=== PATIENT | female | born 1950 | race Caucasian/White ===

== ENCOUNTER 2020-11-04 15:06 | Emergency (ER) | payer MEDICARE, OTHER, SELFPAY ==
[2020-11-04 15:26] VITALS: BP 136/79; PULSE 93; RESP 24; TEMP 36.5; O2SAT 94; BMI 30.2
[2020-11-04 18:40] VITALS: BP 136/80; PULSE 68; RESP 18; TEMP 37.5; O2SAT 100
[2020-11-04 19:11] LABS: COVID19 -Nasal RAPID POSITIVE (Negative)
--- NOTE | 2020-11-04 19:34 | DI.RAD.S_ITS ---
\PROCEDURE: XR CHEST 1V INDICATIONS: covid TECHNIQUE: One view of the chest was acquired. COMPARISON: None. FINDINGS: Surgical changes and devices: None. Lungs and pleura: Bilateral patchy interstitial and airspace opacities, right greater than left. No pleural effusion or pneumothorax. Mediastinum: Mediastinal contours appear normal. Heart size is normal. Bones and chest wall: No suspicious bony lesions. Overlying soft tissues appear unremarkable. IMPRESSION: Bilateral interstitial and airspace opacities consistent with pneumonia. Dictated by: Caesar Reeves M.D. on 11/04/2020 at 19:57 Approved by: Caesar Reeves M.D. on 11/04/2020 at 19:58
--- NOTE | 2020-11-04 19:53 | ED_ITS ---
HPI - URI/Sore Throat General Chief Complaint: Upper Respiratory Symptoms Stated Complaint: Symptoms of COVID, Pulse Ox Keeps Dropping Time Seen by Provider: 11/04/20 18:42 Source: patient Mode of arrival: Ambulatory Limitations: no limitations History of Present Illness HPI Narrative: Patient is a 70-year-old female who is currently not COVID vaccinated stating that her is COVID positive they were exposed on October 26 when they flew to [place], symptoms really started on October 27 or . They have been monitoring oxygen at home hers seems to be borderline and fluctuating. She generally feels weak but no significant chest pain or shortness of breath. Initially her oxygen was 94%, and 100% and currently in the room on the monitor she is 88-91% on room air. She says they both did a course of ivermectin. Related Data Allergies Allergy/AdvReac Type Severity Reaction Status Date / Time Penicillins Allergy Verified 11/04/20 15:25 Review of Systems Review of Systems Narrative: GENERAL: Denies chills, fatigue, malaise, fever, sweats, travel HEENT: Denies sinus pain, ear pain, sore throat, difficulty swallowing, neck pain RESPIRATORY: See HPI CARDIOVASCULAR: Denies chest pain, palpitations, orthopnea, edema GASTROINTESTINAL: Denies nausea, vomiting, abdominal pain, diarrhea, constipation, melena. : Denies dysuria, frequency, incontinence, hematuria, urinary retention, flank pain. MUSCULOSKELETAL: Denies weakness, joint pain, or bony pain SKIN: No rash, no erythema, no pruritus NEUROLOGIC: Denies weakness, dizziness, headache, numbness, change in speech, confusion PSYCHIATRIC: No concerning psychosocial issues. 12 point review of systems is negative except for those stated above and HPI Patient History Social History Smoking Status: Unknown if ever smoked Smoking Status: Unknown if ever smoked alcohol intake frequency: holidays/special occasions only Substance Use Type: does not use Exam Initial Vital Signs Initial Vital Signs: Vital Signs Temperature 97.7 F 11/04/20 15:26 Pulse Rate 93 H 11/04/20 15:26 Respiratory Rate 24 11/04/20 15:26 Blood Pressure 136/79 11/04/20 15:26 Pulse Oximetry 94 11/04/20 15:26 GENERAL: Alert 70-year-old female and in no acute distress. HEENT: Head atraumatic,EOMI, pupils reactive, face symmetric, moist mucous membranes CARDIOVASCULAR: Regular rate and rhythm without murmurs, rubs or gallops. RESPIRATORY: Breath sounds equal bilaterally, no wheezes rales or rhonchi. ABDOMEN: Soft, nontender. Normoactive bowel sounds all 4 quadrants. No guarding or rebound. EXTREMITIES: Normal range of motion, no clubbing or edema. Neurovascularly intact NEUROLOGICAL: Alert and oriented x4.Normal gait and speech. SKIN: Warm, dry, no laceration, no petechiae, no rashes or lesions. Course Orders Ordered: ED Orders 11/04/20 18:47 COVID19 -Nasal swab/Pre-Proc Stat 11/04/20 19:34 XR chest 1V Stat 11/04/20 20:03 C-Reactive Protein Quant Stat Complete Blood Count AUTO DIFF Stat Comprehensive Metabolic Panel Stat D Dimer Stat Lactate (Lactic Acid) Stat NT-proBNP (BNP-Adult 18+) Stat Procalcitonin Stat Troponin & CK Cardiac Panel Stat 11/04/20 21:40 EKG-12 Lead Stat 11/04/20 22:03 CT angio chest PE protocol Stat Discontinued Medications Dexamethasone (Dexamethasone 10 Mg/Ml Vial) 6 mg IV NOW ONE Stop: 11/04/20 19:37 Last Admin: 11/04/20 20:19 Dose: 6 mg Documented by: ANGELA Remdesivir 200 mg/ Sodium (Chloride) 250 mls @ 250 mls/hr IV NOW ONE Stop: 11/04/20 19:37 Last Infusion: 11/04/20 21:24 Dose: 0 mls/hr Documented by: Admin: 11/04/20 20:20 Dose: 250 mls/hr Documented by: ANGELA Vital Signs Vital signs: Vital Signs - 8 hr 11/04/20 18:40 Temperature 99.5 F Pulse Rate 68 Respiratory Rate 18 Blood Pressure 136/80 Pulse Oximetry 100 MDM - URI/Sore Throat Lab Data Result diagrams: 11/04/20 20:03 11/04/20 20:03 Labs: Lab Results 11/04/20 11/04/20 11/04/20 Range/Units 18:47 20:03 20:03 WBC (4.5-11.0) X10^3/uL RBC (4.0-5.2) X10^6/uL Hgb (12.0-16.0) g/dL Hct (36-46) % MCV (80-100) fL MCH (26-34) PG MCHC (30-36) % RDW (11.6-14.8) % Plt Count (150-400) X10^3/uL Neut % (Auto) (50-75) % Lymph % (Auto) (25-40) % [place] % (Auto) (3-14) % Eos % (Auto) (2-4) % Baso % (Auto) (0-2) % Neut # (Auto) (1401-5969) /uL Lymph # (Auto) (7121-7820) /uL [place] # (Auto) (0-900) /uL Eos # (Auto) (0-450) /uL Baso # (Auto) (0-100) /uL D-Dimer 466 H (<230) ng/mL Sodium (137-145) mmol/L Potassium (3.4-5.1) mmol/L Chloride (98-107) mmol/L Carbon Dioxide (22-32) mmol/L BUN (7-17) mg/dL Creatinine (0.52-1.04) mg/dL Estimated GFR (>60) mL/min BUN/Creatinine Ratio (6-22) Glucose (80-110) mg/dL Lactate (0.7-2.1) mmol/L Calcium (8.4-10.2) mg/dL Total Bilirubin (0.2-1.3) mg/dL AST (14-36) IU/L ALT (<35) IU/L Alkaline Phosphatase (38-126) U/L Total Creatine Kinase (30-135) U/L CK-MB (CK-2) (<2.37) ng/mL CK-MB (CK-2) Rel Index (1.5-5.0) % Troponin I (0.01-0.034) ng/mL C-Reactive Protein (<1.0) mg/dL NT-Pro-B Natriuret Pep (<125) pg/mL Total Protein (6.3-8.2) g/dL Albumin (3.5-5.0) g/dL Globulin (1.7-4.1) g/dL Albumin/Globulin Ratio (1.0-2.8) Procalcitonin 0.06 (<0.5) ng/mL SARS-CoV-2 (PCR) Positive H (Negative) 11/04/20 11/04/20 11/04/20 Range/Units 20:03 20:03 20:03 WBC 6.9 (4.5-11.0) X10^3/uL RBC 4.44 (4.0-5.2) X10^6/uL Hgb 12.9 (12.0-16.0) g/dL Hct 38.5 (36-46) % MCV 86.8 (80-100) fL MCH 29.0 (26-34) PG MCHC 33.4 (30-36) % RDW 14.2 (11.6-14.8) % Plt Count 220 (150-400) X10^3/uL Neut % (Auto) 68.2 (50-75) % Lymph % (Auto) 16.5 L (25-40) % [place] % (Auto) 14.8 H (3-14) % Eos % (Auto) 0.2 L (2-4) % Baso % (Auto) 0.3 (0-2) % Neut # (Auto) 4700 (3658-0800) /uL Lymph # (Auto) 1100 (9669-9066) /uL [place] # (Auto) 1000 H (0-900) /uL Eos # (Auto) 0 (0-450) /uL Baso # (Auto) 0 (0-100) /uL D-Dimer (<230) ng/mL Sodium 135 L (137-145) mmol/L Potassium 4.2 (3.4-5.1) mmol/L Chloride 103 (98-107) mmol/L Carbon Dioxide 23 (22-32) mmol/L BUN 16 (7-17) mg/dL Creatinine 0.79 (0.52-1.04) mg/dL Estimated GFR > 60.0 (>60) mL/min BUN/Creatinine Ratio 20.3 (6-22) Glucose 110 (80-110) mg/dL Lactate (0.7-2.1) mmol/L Calcium 8.7 (8.4-10.2) mg/dL Total Bilirubin 0.4 (0.2-1.3) mg/dL AST 71 H (14-36) IU/L ALT 38 H (<35) IU/L Alkaline Phosphatase 79 (38-126) U/L Total Creatine Kinase 385 H (30-135) U/L CK-MB (CK-2) 1.15 (<2.37) ng/mL CK-MB (CK-2) Rel Index 0.3 L (1.5-5.0) % Troponin I < 0.012 (0.01-0.034) ng/mL C-Reactive Protein (<1.0) mg/dL NT-Pro-B Natriuret Pep 30 (<125) pg/mL Total Protein 7.1 (6.3-8.2) g/dL Albumin 3.9 (3.5-5.0) g/dL Globulin 3.2 (1.7-4.1) g/dL Albumin/Globulin Ratio 1.2 (1.0-2.8) Procalcitonin (<0.5) ng/mL SARS-CoV-2 (PCR) (Negative) 11/04/20 11/04/20 Range/Units 20:03 20:03 WBC (4.5-11.0) X10^3/uL RBC (4.0-5.2) X10^6/uL Hgb (12.0-16.0) g/dL Hct (36-46) % MCV (80-100) fL MCH (26-34) PG MCHC (30-36) % RDW (11.6-14.8) % Plt Count (150-400) X10^3/uL Neut % (Auto) (50-75) % Lymph % (Auto) (25-40) % [place] % (Auto) (3-14) % Eos % (Auto) (2-4) % Baso % (Auto) (0-2) % Neut # (Auto) (5379-2615) /uL Lymph # (Auto) (1835-4935) /uL [place] # (Auto) (0-900) /uL Eos # (Auto) (0-450) /uL Baso # (Auto) (0-100) /uL D-Dimer (<230) ng/mL Sodium (137-145) mmol/L Potassium (3.4-5.1) mmol/L Chloride (98-107) mmol/L Carbon Dioxide (22-32) mmol/L BUN (7-17) mg/dL Creatinine (0.52-1.04) mg/dL Estimated GFR (>60) mL/min BUN/Creatinine Ratio (6-22) Glucose (80-110) mg/dL Lactate 0.9 (0.7-2.1) mmol/L Calcium (8.4-10.2) mg/dL Total Bilirubin (0.2-1.3) mg/dL AST (14-36) IU/L ALT (<35) IU/L Alkaline Phosphatase (38-126) U/L Total Creatine Kinase (30-135) U/L CK-MB (CK-2) (<2.37) ng/mL CK-MB (CK-2) Rel Index (1.5-5.0) % Troponin I (0.01-0.034) ng/mL C-Reactive Protein 6.0 H (<1.0) mg/dL NT-Pro-B Natriuret Pep (<125) pg/mL Total Protein (6.3-8.2) g/dL Albumin (3.5-5.0) g/dL Globulin (1.7-4.1) g/dL Albumin/Globulin Ratio (1.0-2.8) Procalcitonin (<0.5) ng/mL SARS-CoV-2 (PCR) (Negative) Imaging Data Chest x-ray: Radiologist's Impression: \PROCEDURE: XR CHEST 1V INDICATIONS: covid TECHNIQUE: One view of the chest was acquired. COMPARISON: None. FINDINGS: Surgical changes and devices: None. Lungs and pleura: Bilateral patchy interstitial and airspace opacities, right greater than left. No pleural effusion or pneumothorax. Mediastinum: Mediastinal contours appear normal. Heart size is normal. Bones and chest wall: No suspicious bony lesions. Overlying soft tissues appear unremarkable. IMPRESSION: Bilateral interstitial and airspace opacities consistent with pneumonia. Dictated by: Caesar Reeves M.D. on 11/04/2020 at 19:57 CT scan - chest: Radiologist's Impression: Preliminary report no evidence of pulmonary embolism. Multifocal bilateral consolidation consistent with pneumonia ECG Data Interpretation: Normal sinus rhythm rate 91 WV interval 146 QRS [address] changes T-wave inversion noted in the 3 and lead 3, Q-waves also noted in leads 3 only nonpathologic MDM Narrative Medical decision making narrative: The patient overall appears well however she is placed on the monitor and has of good waveform with O2 of 88-90%. According to vitals she initially had and O2 of 94%, than it was 100% but she clearly is hypoxic and is a known COVID unvaccinated patient. Both she and her state she has had low oxygen readings at home. At this time she certainly warrants admission. She is given dexamethasone and remdesivir. [facility] does not have any beds. [facility] has a bed, Dr. iverson, request CT angio and will accept patient. CT is negative for pulmonary embolism. The patient remains on 2 L but does desat very minimal exertion. Patient is transferred to [facility]. Discharge Plan Departure Patient Disposition: [facility] Clinical Impression: COVID-19 Referrals: Samson Vázquez MD [Primary Care Provider] -
[2020-11-04] MEDS: DEXAMETHASONE 10 MG/ML VIAL 6 MG IV (20:19)
[2020-11-04] MEDS: REMDESIVIR 200 MG in SODIUM CHLORIDE 0.9% 210 ML 250 ML IV (20:20)
[2020-11-04 20:22] LABS: Add Manual Diff / Slide Review NO; Basophils Absolute Auto 0 /uL (0-100); Basophils Percent Auto 0.3 % (0-2); Eosinophils Absolute Auto 0 /uL (0-450); Eosinophils Percent Auto 0.2 % (2-4); Hematocrit 38.5 % (36-46); Hemoglobin 12.9 g/dL (12.0-16.0); Lymphocytes Absolute Auto 1100 /uL (1100-4500); Lymphocytes Percent Auto 16.5 % (25-40); Mean Corpuscular HGB Conc 33.4 % (30-36); Mean Corpuscular Volume 86.8 fL (80-100); Monocytes Absolute Auto 1000 /uL (0-900); Monocytes Percent Auto 14.8 % (3-14); Neutrophils Absolute Auto 4700 /uL (1500-7000); Neutrophils Percent Auto 68.2 % (50-75); Platelet Count 220 X10^3/uL (150-400); Red Blood Cell Count 4.44 X10^6/uL (4.0-5.2); Red Cell Distribution Width 14.2 % (11.6-14.8); White Blood Cell Count 6.9 X10^3/uL (4.5-11.0)
[2020-11-04 20:31] LABS: D Dimer 466 ng/mL (<230)
[2020-11-04 20:37] LABS: Alanine Aminotransferase 38 IU/L (<35); Albumin 3.9 g/dL (3.5-5.0); Albumin Globulin Ratio 1.2 (1.0-2.8); Alkaline Phosphatase 79 U/L (38-126); Aspartate Aminotransferase 71 IU/L (14-36); BUN Creatinine Ratio 20.3 (6-22); Bilirubin Total 0.4 mg/dL (0.2-1.3); Blood Urea Nitrogen 16 mg/dL (7-17); Calcium 8.7 mg/dL (8.4-10.2); Carbon Dioxide 23 mmol/L (22-32); Chloride 103 mmol/L (98-107); Creatine Kinase 385 U/L (30-135); Estimated Glomerular Filt Rate > 60.0 mL/min (>60); Globulin 3.2 g/dL (1.7-4.1); Glucose 110 mg/dL (80-110); HEMOLYSIS < 15 (0-50); Potassium 4.2 mmol/L (3.4-5.1); Sodium 135 mmol/L (137-145); Total Protein 7.1 g/dL (6.3-8.2)
[2020-11-04 20:38] LABS: Lactate (Lactic Acid) 0.9 mmol/L (0.7-2.1)
[2020-11-04 20:47] LABS: NT-proBNP (BNP-Adult 18+) 30 pg/mL (<125)
[2020-11-04 20:49] LABS: Troponin I < 0.012 ng/mL (0.01-0.034)
[2020-11-04 20:52] LABS: CKMB % Relative Index 0.3 % (1.5-5.0); Creatine Kinase MB 1.15 ng/mL (<2.37)
[2020-11-04 20:54] LABS: Procalcitonin 0.06 ng/mL (<0.5)
--- NOTE | 2020-11-04 22:03 | DI.CT.S_ITS ---
PROCEDURE: CT ANGIO CHEST PE PROTOCOL INDICATIONS: Pneumonia, short of breath TECHNIQUE: After the administration of intravenous contrast, 2 mm thick sections acquired from the pulmonary apices to the posterior costophrenic angles. 3-dimensional maximum intensity projection (MIP) coronal and sagittal reformats were then acquired through the thorax. For radiation dose reduction, the following was used: automated exposure control, adjustment of mA and/or kV according to patient size. COMPARISON: None. FINDINGS: Image quality: Excellent. Pulmonary arteries: Pulmonary arteries are normal in size, and demonstrate no intraluminal filling defects to suggest central pulmonary embolism. Lungs and pleura: Patchy bilateral pulmonary infiltrates have a ground-glass appearance and peripheral distribution, consistent with viral pneumonia. Pleural spaces are clear. Mediastinum: Heart size is normal, without pericardial effusion. No mediastinal or hilar adenopathy. Thoracic aorta is normal in caliber and enhancement. Moderate hiatal hernia noted. Bones and chest wall: No suspicious bony lesions. Ribs and thoracic spine appear intact throughout. Thyroid gland unremarkable. No axillary or supraclavicular adenopathy. Abdomen: Visualized upper abdominal solid organs appear normal in the early arterial phase of enhancement. IMPRESSION: Patchy bilateral ground-glass pulmonary infiltrates consistent with viral or community-acquired pneumonia No evidence pulmonary embolism, aortic dissection or aneurysm. Moderate hiatal hernia. Approved by: Ant Johnson M.D. on 11/05/2020 at 6:37
== END 2020-11-05 01:03 | disposition short-term general hospital (02) ==
PROVIDERS: Emergency Provider Emergency Medicine; PCP Internal Medicine
DX: U07.1 COVID-19 (principal); R09.02 Hypoxemia
CPT/HCPCS: 36415; 71045; 71275; 80053; 82550; 82553; 83605; 83880; 84145; 84484; 85025; 85379; 86140; 87635; 93005; 96365; 96375; 99284; C9803; J1100; Q9967